=== PATIENT | female | born 1950 | race African-American/Black ===

== ENCOUNTER 2017-11-19 10:12 | Emergency (ER) | payer MEDICARE, MEDICAID ==
[~2017-11-19] VITALS: Ht 167.6 cm; Wt 86.2 kg
[~2017-11-19 10:12] MED LIST: EXELON4.6 MG/24 T; MIRTAZAPINE15 M2 PO; RISPERDAL CONST50 MG IM; VITAMIN D50000 I3 PO
[2017-11-19 10:40] LABS: BASO # 0.1 10*3/uL (0.0-0.1); BASO % 0.5 % (0.0-1.0); EOS # 0.1 10*3/uL (0.0-0.4); HEMATOCRIT 31.1 % (37.0-47.0); HEMOGLOBIN 9.5 g/dl (12.0-16.0); LYMPH # 3.2 10*3/uL (1.3-4.4); MEAN CELL VOLUME 82.5 fl (81.0-99.0); MEAN CORPUSCULAR HGB 25.2 pg (27.0-31.0); MEAN CORPUSCULAR HGB CONC 30.5 g/dl (33.0-37.0); MEAN PLATELET VOLUME 9.4 fl (9.6-12.3); MONO # 0.8 10*3/uL (0.1-1.0); MONO % 8.3 % (3.0-9.0); NEUT # 5.7 10*3/uL (2.3-7.9); NEUT % 57.6 % (47.0-73.0); PLATELET COUNT AUTOMATED 356 10*3/uL (130-400); RED BLOOD COUNT 3.77 10*6/uL (4.10-5.10); RED CELL DISTRI WIDTH 16.8 % (0-14.5); WHITE BLOOD COUNT 9.9 10*3/uL (4.8-10.8)
[2017-11-19 10:56] LABS: ACETAMINOPHEN (TYLENOL) < 2.0 ug/ml (10-30); ALKALINE PHOSPHATASE 126 U/L (45-117); BUN 26 mg/dl (7-24); CHLORIDE 103 mmol/L (98-107); CREATININE 1.44 mg/dL (0.55-1.02); ETHYL ALCOHOL < 3.0 mg/dl (<3); POTASSIUM 4.5 mmol/L (3.5-5.1); SGOT/AST 20 IU/L (3-35); SGPT/ALT 26 U/L (12-78); SODIUM 140 mmol/L (136-145); TOTAL PROTEIN 7.9 gm/dL (6.4-8.2)
[2017-11-19 14:18] LABS: BILIRUBIN NEGATIVE (NEGATIVE); BLOOD NEGATIVE (NEGATIVE); CLARITY CLEAR (CLEAR); COLOR YELLOW (YELLOW); GLUCOSE NEGATIVE (NEGATIVE); KETONE NEGATIVE (NEGATIVE); LEUKO ESTERASE TRACE (NEGATIVE); NITRITE POSITIVE (NEGATIVE); PH 5.5 (5.0-9.0); SPECIFIC GRAVITY 1.015 (1.005-1.030); UROBILINOGEN 0.2 E.U./dl (0.2-1.0)
[2017-11-19 14:27] LABS: URINE AMPHETAMINES < 1000 (1000ng/ml); URINE BARBITURATES < 200 (200ng/ml); URINE BENZODIAZEPINES < 200 (200ng/ml); URINE CANNABINOIDS (THC) < 50 (50ng/ml); URINE COCAINE < 300 (300ng/ml); URINE METHADONE < 300 (300ng/ml); URINE OPIATES < 300 (300ng/ml)
[2017-11-19 14:41] LABS: URINE PHENCYCLIDINE < 25 (25ng/ml)
[2017-11-19 14:44] LABS: BACTERIA 1+
[2017-11-19] MEDS ORDERED: LASIX40 MG PO (15:35)
[2017-11-19] MEDS ORDERED: K-TAB20 MEQ PO (15:37)
[2017-11-19] MEDS ORDERED: SEROQUEL25 MG PO (15:38)
[2017-11-19] MEDS ORDERED: RISPERDAL4 M1 PO (15:38)
[2017-11-19] MEDS ORDERED: BISACODYL10 MG R (15:40)
[2017-11-19] MEDS ORDERED: HALDOL5 MG/1 ML IJ (15:41)
[2017-11-19] MEDS ORDERED: BENADRYL ALLERG25 M5 PO (15:42)
== END 2017-11-19 16:05 | disposition home health service (06) ==
LOC: ED 10:12
PROVIDERS: Student in an Organized Health Care Education/Training Program
DX: F03.91 Unspecified dementia, unspecified severity, with behavioral disturbance (principal); F20.9 Schizophrenia, unspecified; Z79.899 Other long term (current) drug therapy

== ENCOUNTER 2017-11-19 12:35 | Inpatient (IN) | payer MEDICARE, MEDICAID ==
[~2017-11-19] VITALS: Ht 157.4 cm; Wt 70.3 kg
--- NOTE | ~2017-11-19 | PR ---
[place], [place] PROGRESS NOTE NAME: ALEXIA JOHNSON UNIT #: [id number] ROOM: 317 DOCTOR: MARIETTA MORSE DO BIRTHDATE: [birth year] DOS: 11/21/2017 CHIEF COMPLAINT: "I don't like these ." SUMMARY OF VISIT: The patient was interviewed in the dining liz. She was sitting in a chair and stated that she wanted the tray table removed. Stated that she did not want her sofía bears there. She the resident from [facility] in [place], [place]. States that she ate breakfast and continues to communicate but she is confused. MENTAL STATUS EXAMINATION: The patient is alert and oriented to self, not to time or place. Mood is somewhat labile with us and she did not respond to questions appropriately. She tended to jump from one topic or subject to another and she minimized her issues. There are no overt signs or symptoms of visual or auditory hallucinations. Her memory of the short term is very limited. PLAN: We will increase her Exelon patch to 9.5 mg daily and start Namenda 5 mg daily in order to maximize potential benefit. We will consult Dr. Elizondo to evaluate for competency. We will continue to engage her in individual and group activities with a plan to return her to the least restrictive environment, most likely to [facility] when she is psychiatrically stable. MARIETTA MORSE DO ALEXY VYAS MD CM:PNANJEL [phone] MARIETTA MORSE DO 11/21/17 1102 interface
--- NOTE | ~2017-11-19 | PR ---
[place], [place] PROGRESS NOTE NAME: ALEXIA JOHNSON UNIT #: [id number] ROOM: 317 DOCTOR: MARIETTA MORSE DO BIRTHDATE: [birth year] DOS: 11/23/2017 CHIEF COMPLAINT: "Sleeping was good." SUMMARY OF VISIT: The patient was interviewed in the dining room area. Stated that she was sleeping well on sleeping medication. Per staff, she has been taking her medication, but will take it in juice. MENTAL STATUS EXAMINATION: The patient is alert and oriented to self only, not to time or place. Mood is labile with us and she showed signs of aggression previously. PLAN: We will start trazodone 150 mg at night and increase the Namenda to 5 mg b.i.d. to maximize potential benefit. Continue to monitor the patient and engage her in group and individual activities. Her FDA and testing is pending. We will plan to return her to the least restrictive environment once psychiatrically stable. MARIETTA MORSE DO ALEXY VYAS MD CM:PNTRANS [id number] MARIETTA MORSE DO 11/24/17 1425 interface
--- NOTE | ~2017-11-19 | PR ---
[place], [place] PROGRESS NOTE NAME: ALEXIA JOHNSON UNIT #: [id number] ROOM: 317 DOCTOR: ALEXY VYAS MD BIRTHDATE: [birth year] DOS: 11/25/2017 CHIEF COMPLAINT: "Abdirashid, shelly come over here." SUMMARY OF THE VISIT: The patient was interviewed as she sat in the dining area in a Madelyn chair. She was partially engaging in activities, but also calling out to what appeared to be unforeseen others. The patient has been more compliant in the long run and has been less agitated and aggressive, although she still has periods with hands on care that she has been combative. She does seem to be tolerating the current medication regimen well without any sedation, somnolence, extrapyramidal symptoms or tardive dyskinesia. MENTAL STATUS: She is alert and oriented to person, possibly place, not time. Mood does seem to be starting to trend towards euthymia. Affect is more appropriate. There is no adina, hypomania or gross psychosis. Short term memory is poor. PLAN: I will maintain her current dose of Exelon patch at 13.3 and bring the Namenda to its ultimate therapeutic dose of 10 mg b.i.d. Maintain Risperdal. Continue to engage in individual and guerrero milieu activity, returning to the least restrictive environment when stable. ALEXY VYAS MD CM:PNTRANS 1107 1131 ALEXY VYAS MD 11/25/17 1130 interface
--- NOTE | ~2017-11-19 | PR ---
[place], [place] PROGRESS NOTE NAME: ALEXIA JOHNSON UNIT #: [id number] ROOM: 317 DOCTOR: ALEXY VYAS MD BIRTHDATE: [birth year] DOS: 11/26/2017 CHIEF COMPLAINT: "See my babies." SUMMARY OF THE VISIT: The patient was interviewed in the dining area where she sat in a Madelyn chair with a tray with babies on top of it that she was attending to. She engaged readily in superficial, confused conversation. She was not agitated, however. She was not physically or verbally combative in any way. She talked in short simple sentences, often times inappropriate. She is tolerating the current medication regimen well and I see no tardive dyskinesia, extrapyramidal symptoms, sedation or somnolence. MENTAL STATUS: She is alert and oriented with time gaps. Mood does seem to be trending towards euthymia. Affect is much more appropriate. There is no adina or hypomania. There are no overt auditory or visual hallucinations. She does remain delusional, but pleasantly so. Short term memory is exceedingly poor. PLAN: I will maintain her current psychotropic regimen, engage in individual and guerrero milieu activity, returning then to the least restrictive environment when stable. ALEXY VYAS MD CM:PNTRANS [phone] ALEXY VYAS MD 11/26/17 1041 interface
--- NOTE | ~2017-11-19 | PR ---
[place], [place] PROGRESS NOTE NAME: ALEXIA JOHNSON UNIT #: [id number] ROOM: 317 DOCTOR: MARIETTA MORSE DO BIRTHDATE: [birth year] DOS: 11/29/2017 CHIEF COMPLAINT: "I feel good." SUMMARY OF THE VISIT: The patient was interviewed in the dining room area. She is eating breakfast. She responded to questions, however, very slow. She was eating and per her baseline, she again continues to appear tearful in her right eye. MENTAL STATUS EXAMINATION: She is alert and oriented to self only, not to place or time. Mood seems to be trending towards euthymia with a more appropriate affect. There are no symptoms of adina, hypomania or psychosis. Short term memory exceedingly poor. PLAN: We will continue her current psychotropic regimen at this time. We will continue to monitor her for sedation and extrapyramidal side effects, tardive dyskinesia. Continue to engage her in group and individual activities with the plan to return her to the least restrictive environment when psychiatrically stable. MARIETTA MORSE DO ALEXY VYAS MD CM:PNTRANS [id number] MARIETTA MORSE DO 11/29/17 1114 interface
--- NOTE | ~2017-11-19 | PR ---
[place], [place] PROGRESS NOTE NAME: ALEXIA JOHNSON UNIT #: [id number] ROOM: 317 DOCTOR: ALEXY VYAS MD BIRTHDATE: [birth year] DOS: 11/27/2017 CHIEF COMPLAINT: "I am okay." SUMMARY OF THE VISIT: The patient was interviewed as she was sitting in a Madelyn chair, having completed her breakfast and she was interacting with her baby dolls. She was sleeping at first. I did approach her and she woke up quickly and grabbed a hold of her dolls and stroked them. Her responses still tend to be short and simple. She was pleasant with me; however, grossly confused nonetheless. MENTAL STATUS: She is alert and oriented to self. It is unclear place, certainly not time. Mood does seem to be trending towards euthymia. Affect is more appropriate. There is no adina, hypomania or psychosis. Short term memory is exceedingly poor and she processes slowly. PLAN: I will maintain her current psychotropic regimen, continue to monitor for sedation and somnolence as well as extrapyramidal symptoms and tardive dyskinesia, continue to engage in individual and guerrero milieu activity, returning to the least restrictive environment when psychiatrically stable. ALEXY VYAS MD CM:PNTRANS 0924 1007 ALEXY VYAS MD 11/27/17 1007 interface
--- NOTE | ~2017-11-19 | PR ---
[place], [place] PROGRESS NOTE NAME: ALEXIA JOHNSON UNIT #: [id number] ROOM: 317 DOCTOR: MARIETTA MORSE DO BIRTHDATE: [birth year] DOS: 11/24/2017 CHIEF COMPLAINT: "Feel fine." SUMMARY OF VISIT: The patient was interviewed in the therapy room with the machine dyer present. The patient reports that she slept. She was calling people or lady yesterday. The patient denied any pain or trouble sleeping. MENTAL STATUS EXAMINATION: The patient is alert and oriented to self only, not to time or place. and she does not typically respond to questions appropriately. Her behavior at times has been somewhat aggressive. There are no signs or symptoms of visual or auditory hallucinations. Short term memory is limited. PLAN: We will increase her Namenda dose to 10 mg in the morning and 5 mg at night to maximize potential benefit. Her FTA antibody level was positive. We will discuss with the medical team. We will continue to engage her in group and individual activities with the plan to return her to the least restrictive environment when psychiatrically stable. MARIETTA MORSE DO ALEXY VYAS MD CM:PNTRANS [phone] MARIETTA MORSE DO 11/24/17 1430 interface
--- NOTE | ~2017-11-19 | CON ---
[place], [place] REPORT OF CONSULTATION NAME: ALEXIA JOHNSON UNIT #: [id number] ROOM: 317 DOCTOR: JEFF DAVIDSON ED.D (FELICITAS) BIRTHDATE: [birth year] DOS: 11/21/2017 HISTORY OF PRESENT ILLNESS: The patient is a 67-year-old female referred by Dr. Alex for competency evaluation. The patient was not able to answer very simple questions, although she did state she had several children, but does not know their names or where they live or how old they were. She is presently a resident at [facility] in [place], [place]. Her medical history is pertinent for diabetes mellitus, schizophrenia and Alzheimer dementia. I do not know her substance abuse history. She was awake, alert and oriented to person only. She had no idea where and she was and she has no idea of the date or the year. She cannot hold normal simple conversations. She is obviously quite confused. Her short and long-term memory are both markedly impaired and it is clear she is not competent to make informed healthcare decisions. [facility] and I do believe she is not capable of making decisions and a guardian should be established if there are no family members who are her healthcare power of state's attorney. DIAGNOSES: 1. Schizophrenia. 2. Major neurocognitive disorder--Alzheimer disease. RECOMMENDATIONS: In my opinion, this patient needs a guardian. Thank you very much very much for this consult. JEFF DAVIDSON ED.D CM:CONSTR:REPORT OF CONSULTATION 1516 11/21/17 2217 interface ALEXY ALEX MD
--- NOTE | ~2017-11-19 | PR ---
[place], [place] PROGRESS NOTE NAME: ALEXIA JOHNSON UNIT #: [id number] ROOM: 317 DOCTOR: MARIETTA MORSE DO BIRTHDATE: [birth year] DOS: 11/28/2017 CHIEF COMPLAINT: The patient ____. SUMMARY OF VISIT: The patient was interviewed in the dining room while she was eating breakfast. She appeared to respond with her eyes, but continued to eat and did not respond appropriately to questions. Per report and staff, the patient slept. She did appear tearful in her right eye as we were speaking. MENTAL STATUS: She is alert and oriented to self only. Mood does seem to be trending towards euthymia with more appropriate affect. There are no symptoms of adina, hypomania, psychosis. Short term memory is exceedingly poor and she continues to process thoughts very slowly. PLAN: We will continue with current psychotropic regimen at this time. Continue to monitor for sedation in ____ months as well as any extrapyramidal symptoms and tardive dyskinesia. We will continue to engage her in individual and group activities with the plan to return her to the least restrictive environment when psychiatrically stable. MARIETTA MORSE DO ALEXY VYAS MD CM:PNANJEL [id number] MARIETTA MORSE DO 11/29/17 0451 interface
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
[2017-11-19] MEDS ORDERED: LASIX40 MG PO (15:35)
[2017-11-19] MEDS ORDERED: K-TAB20 MEQ PO (15:37)
[2017-11-19] MEDS ORDERED: SEROQUEL25 MG PO (15:38)
[2017-11-19] MEDS ORDERED: RISPERDAL4 M1 PO (15:38)
[2017-11-19] MEDS ORDERED: BISACODYL10 MG R (15:40)
[2017-11-19] MEDS ORDERED: HALDOL5 MG/1 ML IJ (15:41)
[2017-11-19] MEDS ORDERED: BENADRYL ALLERG25 M5 PO (15:42)
[2017-11-19 16:41] VITALS: BP 141/54
[2017-11-19 16:42] VITALS: BP 141/54
[2017-11-19 20:47] VITALS: BP 165/63
[2017-11-20 05:51] LABS: ALBUMIN 2.8 gm/dl (3.1-4.5); CREATININE 1.19 mg/dL (0.55-1.02); POTASSIUM 4.5 mmol/L (3.5-5.1)
[2017-11-20 05:58] LABS: THYROID STIM HORMONE (HS) 3.35 uIU/ml (0.358-4.75)
[2017-11-20 06:30] LABS: BASO % 0.6 % (0.0-1.0); EOS # 0.1 10*3/uL (0.0-0.4); HEMATOCRIT 30.6 % (37.0-47.0); HEMOGLOBIN 9.4 g/dl (12.0-16.0); LYMPH # 1.4 10*3/uL (1.3-4.4); LYMPH % 21.2 % (27.0-41.0); MEAN CELL VOLUME 82.9 fl (81.0-99.0); MEAN CORPUSCULAR HGB 25.5 pg (27.0-31.0); MEAN CORPUSCULAR HGB CONC 30.7 g/dl (33.0-37.0); MEAN PLATELET VOLUME 9.8 fl (9.6-12.3); MONO # 0.5 10*3/uL (0.1-1.0); MONO % 7.8 % (3.0-9.0); NEUT # 4.6 10*3/uL (2.3-7.9); NEUT % 69.1 % (47.0-73.0); PLATELET COUNT AUTOMATED 320 10*3/uL (130-400); RED BLOOD COUNT 3.69 10*6/uL (4.10-5.10); RED CELL DISTRI WIDTH 16.7 % (0-14.5); WHITE BLOOD COUNT 6.7 10*3/uL (4.8-10.8)
[2017-11-20 07:21] LABS: VITAMIN D, 25-HYDROXY 38.9 ng/mL (30-100)
[2017-11-20 07:53] VITALS: BP 154/78
[2017-11-21 08:12] VITALS: BP 129/56
[2017-11-21 20:52] VITALS: BP 132/76
[2017-11-22 08:00] VITALS: BP 139/66
[2017-11-22 20:00] VITALS: BP 136/70
[2017-11-23 09:04] VITALS: BP 119/52
[2017-11-23 20:20] VITALS: BP 156/64
[2017-11-24 08:11] VITALS: BP 142/70
[2017-11-24 08:12] VITALS: BP 142/70
[2017-11-24 20:17] VITALS: BP 134/62
[2017-11-25 08:10] VITALS: BP 132/84
[2017-11-25 20:00] VITALS: BP 143/88
[2017-11-26 07:31] VITALS: BP 136/80
[2017-11-26 19:51] VITALS: BP 135/64
[2017-11-27 07:51] VITALS: BP 132/76
[2017-11-27 20:16] VITALS: BP 140/64
[2017-11-28 07:59] VITALS: BP 134/69
[2017-11-28 20:00] VITALS: BP 148/62
[2017-11-29 07:57] VITALS: BP 136/72
[2017-11-29] MEDS ORDERED: TRAZODONE150 MG PO (12:14)
[2017-11-29] MEDS ORDERED: MEMANTINE HCL10 MG PO (12:14)
[2017-11-29] MEDS ORDERED: EXELON13.3 MG/21 T (12:14)
[2017-11-29] MEDS ORDERED: RISPERIDONE M-TA1 MG BC ×2 (12:14)
[2017-11-29] MEDS ORDERED: LISINOPRIL2.5 MG PO (14:59)
[2017-11-29] MEDS ORDERED: [UNRECOGNIZED DRUG - CODE] IM (15:04)
== END 2017-11-29 15:35 | disposition other institution (70) | DRG 56 ==
LOC: 3N 12:35
PROVIDERS: Psychiatry & Neurology Psychiatry
DX: G30.9 Alzheimer's disease, unspecified (principal); E43 Unspecified severe protein-calorie malnutrition; F02.81 Dementia in other diseases classified elsewhere, unspecified severity, with behavioral disturbance; N39.0 Urinary tract infection, site not specified; F20.9 Schizophrenia, unspecified; E11.65 Type 2 diabetes mellitus with hyperglycemia; D64.9 Anemia, unspecified; I87.2 Venous insufficiency (chronic) (peripheral); Z83.3 Family history of diabetes mellitus; Z82.49 Family history of ischemic heart disease and other diseases of the circulatory system; Z79.899 Other long term (current) drug therapy; Z68.28 Body mass index [BMI] 28.0-28.9, adult

== ENCOUNTER 2018-02-18 20:43 | Inpatient (IN) | payer MEDICARE, MEDICAID ==
[~2018-02-18] VITALS: Ht 144.7 cm; Wt 79.0 kg
--- NOTE | ~2018-02-18 | PR ---
[place], [place] PROGRESS NOTE NAME: ALEXIA JOHNSON UNIT #: [id number] ROOM: 312 DOCTOR: ALEXY VYAS MD BIRTHDATE: [birth year] DOS: 02/23/2018 CHIEF COMPLAINT: "Oh, hi there." SUMMARY OF THE VISIT: The patient was interviewed in the dining area where she was engaging in group activity. She stopped and engaged in brief superficial conversation, smiling at me as I approached. She voiced no complaints, stating that she is sleeping well, eating well and feels much better since she has been here. She is anxious to leave and be able to go back home. She was not able to actually tell me where home was. MENTAL STATUS: She is alert and oriented to self, place, perhaps not time. Mood does seem to be trending towards euthymia. Affect is much more appropriate. There is no adina or hypomania. There are no gross psychotic symptoms. Short term memory continues to be problematic, intermediate, and long-term memory are intact. PLAN: Maintain the current psychotropic regimen, engage in individual and guerrero milieu activities, returning then to [facility] when stable. ALEXY VYAS MD CM:PNTRANS [phone] [id number] ALEXY VYAS MD 02/23/182036 interface
--- NOTE | ~2018-02-18 | PR ---
[place], [place] PROGRESS NOTE NAME: ALEXIA JOHNSON UNIT #: [id number] ROOM: 312 DOCTOR: ALEXY VYAS MD BIRTHDATE: [birth year] DOS: 02/24/2018 INTERVAL NOTE CHIEF COMPLAINT: "Oh, hi doctor, how are you?" SUMMARY OF THE VISIT: The patient was interviewed as she was resting quietly in bed. She engaged readily in conversation albeit superficial. She denied any problems, stating that she is sleeping well, eating well and is anxious to leave the hospital. Nurses do report; however, they are not finding her Exelon patches on her when they go to replace it. So at some point in time, she is picking off the patch and throwing them away. MENTAL STATUS: She is alert and oriented to person, place, but not time. Mood does seem to be more euthymic. Affect is more appropriate. There is no adina or hypomania. There is no voiced psychotic symptoms. Short term memory continues to be poor. PLAN: I will discontinue Exelon patch in lieu of Exelon capsules 6 mg. ALEXY VYAS MD CM:PNTRANS 1141 1 ALEXY VYAS MD 02/25/180 interface
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
--- NOTE | ~2018-02-18 | PR ---
[place], [place] PROGRESS NOTE NAME: ALEXIA JOHNSON UNIT #: [id number] ROOM: 312 DOCTOR: ALEXY VYAS MD BIRTHDATE: [birth year] DOS: 02/25/2018 INTERVAL NOTE CHIEF COMPLAINT: "Oh good morning doctor." SUMMARY OF THE VISIT: The patient was interviewed as she was sitting in the dining area, watching television, working on a coloring page and talking to a female staff member. As I approached, she smiled readily and greeted me. She reports that she is feeling well, sleeping well, eating well and noting no issues whatsoever. Behaviorally, she has been perfect and has not exhibited any agitation or aggression and she likewise has been tolerating her current medication regimen well. MENTAL STATUS: She is alert and oriented to person, place, but not time. Mood does seem to be strongly trending towards euthymia. Affect is much more appropriate. There is no adina, hypomania or psychosis. Short term memory continues to be problematic, but otherwise she is intact. PLAN: I will renew her p.r.n. Ativan in case she requires intervention. Continue to engage in individual and guerrero milieu activity, returning then to the least restrictive environment when psychiatrically stable. ALEXY VYAS MD CM:PNTRANS [phone] ALEXY VYAS MD 02/26/18 0140 interface
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
[~2018-02-18 20:43] MED LIST changes: +BENADRYL ALLERG25 M5 PO; +BISACODYL10 MG R; +EXELON13.3 MG/21 T; +HALDOL5 MG/1 ML IJ; +K-TAB20 MEQ PO; +LASIX40 MG PO; +LISINOPRIL2.5 MG PO; +MEMANTINE HCL10 MG PO; +RISPERDAL4 M1 PO; +RISPERIDONE M-TA1 MG BC; +SEROQUEL25 MG PO; +TRAZODONE150 MG PO; +[UNRECOGNIZED DRUG - CODE] IM
[2018-02-18] MEDS ORDERED: HALOPERIDOL2 M1 PO (21:39)
[2018-02-18] MEDS ORDERED: LASIX20 MG PO (21:40)
[2018-02-18 23:33] VITALS: BP 152/60
[2018-02-18 23:45] VITALS: BP 152/60
[2018-02-19 07:52] VITALS: BP 147/64
[2018-02-19 20:13] VITALS: BP 155/80
[2018-02-20 07:54] VITALS: BP 143/72
[2018-02-20 20:06] VITALS: BP 135/58
[2018-02-21 08:13] VITALS: BP 114/64
[2018-02-21 20:00] VITALS: BP 142/56
[2018-02-22 07:46] VITALS: BP 132/70
[2018-02-22 07:47] VITALS: BP 132/70
[2018-02-22 20:00] VITALS: BP 146/68
[2018-02-23 07:50] VITALS: BP 141/70
[2018-02-23 20:01] VITALS: BP 145/66
[2018-02-24 07:46] VITALS: BP 123/65
[2018-02-24 20:05] VITALS: BP 120/78
[2018-02-25 08:31] VITALS: BP 142/66
[2018-02-25 19:54] VITALS: BP 135/52
[2018-02-26 08:03] VITALS: BP 100/55
[2018-02-26] MEDS ORDERED: MEMANTINE HCL10 MG PO (11:15)
[2018-02-26] MEDS ORDERED: TRAZODONE100 MG PO (11:15)
[2018-02-26] MEDS ORDERED: RISPERDAL M BC ×2 (11:15)
[2018-02-26] MEDS ORDERED: Vitamin D PO (11:15)
[2018-02-26] MEDS ORDERED: RIVASTIGMINE TAR3 M1 PO (11:15)
== END 2018-02-26 13:15 | disposition other institution (70) | DRG 885 ==
LOC: 3N 20:43
DX: F25.9 Schizoaffective disorder, unspecified (principal); G30.9 Alzheimer's disease, unspecified; F02.80 Dementia in other diseases classified elsewhere, unspecified severity, without behavioral disturbance, psychotic disturbance, mood disturbance, and anxiety; E11.65 Type 2 diabetes mellitus with hyperglycemia; I87.2 Venous insufficiency (chronic) (peripheral); R45.1 Restlessness and agitation; F09 Unspecified mental disorder due to known physiological condition; S91.109A Unspecified open wound of unspecified toe(s) without damage to nail, initial encounter; F32.9 Major depressive disorder, single episode, unspecified; Z83.3 Family history of diabetes mellitus; Z82.49 Family history of ischemic heart disease and other diseases of the circulatory system; X58.XXXA Exposure to other specified factors, initial encounter; Y93.89 Activity, other specified; Y92.89 Other specified places as the place of occurrence of the external cause; Y99.8 Other external cause status

== ENCOUNTER 2018-06-23 23:09 | Inpatient (IN) | payer MEDICARE, MEDICAID ==
[~2018-06-23] VITALS: Ht 154.9 cm; Wt 81.6 kg
--- NOTE | ~2018-06-23 | PR ---
[place], [place] PROGRESS NOTE NAME: ALEXIA JOHNSON UNIT #: [id number] ROOM: 312 DOCTOR: ALEXY VYAS MD BIRTHDATE: [birth year] DOS: 06/28/2018 CHIEF COMPLAINT: "Oh, I have been waiting for you honey." SUMMARY OF THE VISIT: The patient was interviewed as she was sitting eating her breakfast. As I approached, she smiled readily. She engaged in brief superficial conversation with me stating that she has been waiting to see me and continued to be somewhat flirtatious. She was pleasant with me and voiced no other complaints. There was no sedation or somnolence, no extrapyramidal symptoms. MENTAL STATUS: She is alert and oriented to person, place, not necessarily time. Mood does seem to be trending towards euthymia. Affect is more appropriate. There is no adina, hypomania or psychosis. Short term memory is very problematic. PLAN: I will increase her Fanapt from 2 mg twice a day to 4 mg twice a day as I am attempting to control some of the mood lability and PTSD type symptoms. Her RPR did come back positive as did her FTA antibody and I will defer to the hospitalist for any further treatment. ALEXY VYAS MD CM:PNTRANS 8 5 ALEXY VYAS MD 06/28/18825 interface
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
--- NOTE | ~2018-06-23 | EKG ---
[place], [place] ELECTROCARDIOGRAM REPORT NAME: ALEXIA JOHNSON UNIT #: [id number] ROOM: 312 DOCTOR: TIFFANIE DRAFT REPORT BIRTHDATE: [birth year] [facility] Test Date: 2018-07-03 Test Time: 03:54:21 Pat Name: ALEXIA JOHNSON Department: Room: [facility] 2 Gender: F Mechanical Design Technician: : 1950 Requested By: NEEMA DUARTE Order Number: [id number] Reading MD: Measurements Intervals [place] Rate: 67 P: 91 AR: 184 QRS: 32 QRSD: 99 T: -3 QT: 441 QTc: 466 Interpretive Statements Sinus rhythm Consider right atrial enlargement Borderline T abnormalities, inferior leads No previous ECG available for comparison CM:EKGRPT:ELECTROCARDIOGRAM REPORT [id number] NEEMA JERONIMO DRAFT REPORT NEEMA DUARTE DO
--- NOTE | ~2018-06-23 | PR ---
[place], [place] PROGRESS NOTE NAME: ALEXIA JOHNSON UNIT #: [id number] ROOM: 312 DOCTOR: ALEXY VYAS MD BIRTHDATE: [birth year] DOS: 07/10/2018 CHIEF COMPLAINT: "Oh, hi there honey, how are you?" SUMMARY OF THE VISIT: The patient was interviewed in the dining area where she was completing her breakfast once again. She reported that she slept well. She feels warm and happy and denied any other issues. There was no agitation or aggression, no mood lability. Likewise, there was no tardive dyskinesia, extrapyramidal symptoms, sedation or somnolence. MENTAL STATUS: She remains alert and oriented to self only. She is pleasantly confused with no agitation, no hypomania or adina. No gross psychosis. Memory remains poor and she processes slowly. PLAN: I will maintain her current psychotropic regimen and engage in individual and guerrero milieu activity, returning to the least restrictive environment when psychiatrically stable. ALEXY VYAS MD CM:PNTRANS 0922 [id number] ALEXY VYAS MD 07/10/18 1419 interface
--- NOTE | ~2018-06-23 | PR ---
[place], [place] PROGRESS NOTE NAME: ALEXIA JOHNSON UNIT #: [id number] ROOM: 312 DOCTOR: ALEXY VYAS MD BIRTHDATE: [birth year] DOS: 07/03/2018 INTERVAL NOTE CHIEF COMPLAINT: "The patient was sleeping in her bed and did not awake." SUMMARY OF THE VISIT: Nurses report that she was very somnolent upon awakening this morning and was hard to arouse and did not eat much. Her blood pressure was also low. This corresponds with me increasing the nighttime dose of the Fanapt and is most likely in response to that increase. I was not able to arouse her much. She did open her eyes and mouth the word morning and then went back to sleep. MENTAL STATUS: Limited due to her overall level of somnolence. PLAN: I will lower the dose of Fanapt back to 6 mg twice daily. This in conjunction with the Ativan does seem to be decreasing her resistance to care and to posttraumatic stress disorder symptoms. I will continue to engage in individual and guerrero milieu activity, returning to the least restrictive environment when psychiatrically stable. ALEXY VYAS MD CM:PNTRANS [phone] ALEXY VYAS MD 07/03/18 1255 interface
--- NOTE | ~2018-06-23 | PR ---
[place], [place] PROGRESS NOTE NAME: CARISSA JOHNSON UNIT #: [id number] ROOM: 312 DOCTOR: ALEXY VYAS MD BIRTHDATE: [birth year] DOS: 07/09/2018 INTERVAL NOTE CHIEF COMPLAINT: "Oh I'll have some more pancakes please." SUMMARY OF THE VISIT: The patient was interviewed as she was sitting in the dining area. She had her entire plate of food just about eaten and requested some more pancakes. She was bright and pleasant, relatively conversant for Carissa. There were no attempts to be agitated or aggressive. There was no impulsive behavior. She responded to questions briefly, but pleasantly. I did not see the presence of any sedation, somnolence, extrapyramidal symptoms or tardive dyskinesia. MENTAL STATUS: She is alert and oriented to self, unclear place, certainly not time. Mood does seem to be fairly euthymic. Affect is more appropriate. There is no adina or hypomania noted. There are no gross psychotic symptoms. Short term memory continues to be problematic. Otherwise, she is intact. PLAN: I will maintain her current psychotropics. I have discussed the case with social organization professor regarding alternative placement options and they will reach out to some of the long-term care facilities in the [place], [place] area to see if there is any bed availability. I will continue to engage her in individual and guerrero milieu activity, returning then to the least restrictive environment when psychiatrically stable. ALXEY VYAS MD CM:PNTRANS 0837 [id number] ALEXY VYAS MD 07/10/18 0331 interface
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
--- NOTE | ~2018-06-23 | PR ---
[place], [place] PROGRESS NOTE NAME: ALEXIA JOHNSON UNIT #: [id number] ROOM: 312 DOCTOR: ALEXY VYAS MD BIRTHDATE: [birth year] DOS: 07/01/2018 CHIEF COMPLAINT: "Morning honey." SUMMARY OF THE VISIT: The patient was sitting in the quiet room. She engaged in brief superficial conversation, smiling as I approached. There was no agitation or aggression, no mood lability. Nurses do report, however, she continues to be somewhat resistive to care and at those times when she becomes verbally and physically combative. She does seem to be tolerating the Fanapt well. There is only some mild somnolence noted, but she was awake as I mentioned earlier as I approached. MENTAL STATUS: She is alert and oriented to person, place, not to time. Mood does seem to be trending gradually towards euthymia. Affect is more appropriate. There is no adina, hypomania or gross psychosis. Short term memory continues to be problematic. PLAN: I will maintain her current psychotropic regimen consider increasing the Fanapt later. At this point, I would like her to adjust to it further before making any further adjustments in the dosing schedule. ALEXY VYAS MD CM:PNTRANS 1015 1055 ALEXY VYAS MD 07/01/18 1055 interface
--- NOTE | ~2018-06-23 | PR ---
[place], [place] PROGRESS NOTE NAME: ALEXIA JOHNSON UNIT #: [id number] ROOM: 312 DOCTOR: ALEXY VYAS MD BIRTHDATE: [birth year] DOS: 06/26/2018 CHIEF COMPLAINT: "Oh good morning sweetie I love you." SUMMARY OF THE VISIT: The patient was interviewed as she was walking up and down the hallway. She was able to engage in conversation with me. She smiled readily and voiced no other complaints. Nurses report that overall her behavior is trending toward improvement, but she still has these periods of unprovoked agitation. She is tolerating the Fanapt well and I noticed no sedation, somnolence, extrapyramidal symptoms, or tardive dyskinesia. MENTAL STATUS: She is alert and oriented to person, place, not necessarily time. Mood does seem to be more euthymic. Affect more appropriate. There is no adina or hypomania. There are no gross psychotic symptoms. Short term memory continues to be problematic. PLAN: I will continue my titration of the Fanapt bringing it from 1 mg b.i.d. to 2 mg b.i.d. Monitor and support, engage in individual and guerrero milieu activity, returning then to the least restrictive environment when psychiatrically stable. ALEXY VYAS MD CM:PNTRANS [id number] ALEXY VYAS MD 06/26/18 1140 interface
--- NOTE | ~2018-06-23 | PR ---
[place], [place] PROGRESS NOTE NAME: ALEXIA JOHNSON UNIT #: [id number] ROOM: 312 DOCTOR: ALEXY VYAS MD BIRTHDATE: [birth year] DOS: 06/29/2018 CHIEF COMPLAINT: "Oh, good morning honey, do you want some coffee or juice?" SUMMARY OF THE VISIT: The patient was interviewed as she was sitting eating her breakfast in the dining area. Once again as I approached, she smiled readily and greeted me with offering me either her coffee or her milk or her juice. She smiled and voiced no other complaints. She reports that she slept well and nurses confirmed that she slept very well last evening. MENTAL STATUS: She is alert and oriented to self, possibly place, not to time. Mood seems trending towards euthymia. Affect is more appropriate. There is no adina or hypomania. There is no gross psychosis noted. No auditory or visual hallucinations are present and there is no paranoia. Short term memory continues to be problematic. PLAN: I will go ahead and simplify her regimen, continuing to increase the Fanapt now from 4 mg b.i.d. to 6 mg b.i.d. I will discontinue her afternoon, evening, Atarax because I think the Fanapt will cover her and help prevent behaviors. We will monitor and support. ALEXY VYAS MD CM:PNTRANS [phone] ALEXY VYAS MD 06/29/18 1443 interface
--- NOTE | ~2018-06-23 | PR ---
[place], [place] PROGRESS NOTE [id number] UNIT #: [id number] ROOM: 312 DOCTOR: ALEXY VYAS MD BIRTHDATE: [birth year] DOS: 07/04/2018 CHIEF COMPLAINT: "Oh good morning honey." SUMMARY OF THE VISIT: The patient was interviewed as she was sitting in a Madelyn chair, watching television in the dining area. She was much more awake and interactive today than she was yesterday. She was able to converse with me readily. There was no agitation or aggression. There was no mood lability. MENTAL STATUS: She is alert and oriented to self, unclear place, certainly not time. Mood does seem to be more stable. There is less mood lability noted. There was no adina, hypomania or psychosis. Short term memory continues to be problematic. Otherwise, she is intact. PLAN: I will maintain her current psychotropics, monitor and support, engage in individual and guerrero milieu activity, returning to the least restrictive environment when psychiatrically stable. ALEXY VYAS MD CM:PNTRANS 0954 1043 ALEXY VYAS MD 07/04/18 1043 interface
[~2018-06-23 23:09] MED LIST changes: +AMBIEN5 MG PO; +ARICEPT10 M1 PO; +HALOPERIDOL2 M1 PO; +IRON325 M3 PO; +LASIX20 MG PO; +NORVASC10 MG PO; +RISPERDAL M BC; +RIVASTIGMINE TAR3 M1 PO; +TRAZODONE100 MG PO; +Vitamin D PO
[2018-06-23] MEDS ORDERED: ZYPREXA ZYDIS10 MG PO (23:10)
[2018-06-23 23:55] VITALS: BP 156/66
[2018-06-24 07:34] VITALS: BP 128/72
[2018-06-24 08:01] LABS: VITAMIN D, 25-HYDROXY 29.1 ng/mL (30-100)
[2018-06-24 19:16] VITALS: BP 130/69
[2018-06-25 08:00] VITALS: BP 143/55
[2018-06-25 20:02] VITALS: BP 143/60
[2018-06-26 07:41] VITALS: BP 143/65
[2018-06-26 20:10] VITALS: BP 150/68
[2018-06-26 20:24] VITALS: BP 143/65
[2018-06-27 07:33] VITALS: BP 120/64
[2018-06-27 19:20] VITALS: BP 124/67
[2018-06-28 07:24] VITALS: BP 138/70
[2018-06-28 19:13] VITALS: BP 132/72
[2018-06-29 07:22] VITALS: BP 132/66
[2018-06-29 20:15] VITALS: BP 155/57
[2018-06-30 08:23] VITALS: BP 120/62
[2018-06-30 19:31] VITALS: BP 138/68
[2018-07-01 07:25] VITALS: BP 156/50
[2018-07-01 19:50] VITALS: BP 142/58
[2018-07-02 07:25] VITALS: BP 136/69
[2018-07-02 19:49] VITALS: BP 135/59
[2018-07-03 01:19] VITALS: BP 154/69
[2018-07-03 03:01] VITALS: BP 97/52
[2018-07-03 03:45] LABS: BASO % 0.4 % (0.0-1.0); EOS # 0.1 10*3/uL (0.0-0.4); HEMATOCRIT 31.5 % (37.0-47.0); HEMOGLOBIN 9.7 g/dl (12.0-16.0); LYMPH # 2.6 10*3/uL (1.3-4.4); LYMPH % 36.5 % (27.0-41.0); MEAN CELL VOLUME 84.9 fl (81.0-99.0); MEAN CORPUSCULAR HGB 26.1 pg (27.0-31.0); MEAN CORPUSCULAR HGB CONC 30.8 g/dl (33.0-37.0); MEAN PLATELET VOLUME 9.9 fl (9.6-12.3); MONO # 0.7 10*3/uL (0.1-1.0); MONO % 9.1 % (3.0-9.0); NEUT # 3.7 10*3/uL (2.3-7.9); NEUT % 51.7 % (47.0-73.0); PLATELET COUNT AUTOMATED 213 10*3/uL (130-400); RED BLOOD COUNT 3.71 10*6/uL (4.10-5.10); RED CELL DISTRI WIDTH 17.5 % (0-14.5); WHITE BLOOD COUNT 7.2 10*3/uL (4.8-10.8)
[2018-07-03 04:04] LABS: CREATININE 1.15 mg/dL (0.55-1.02); POTASSIUM 4.7 mmol/L (3.5-5.1); TOTAL PROTEIN 7.1 gm/dL (6.4-8.2)
[2018-07-03 05:14] VITALS: BP 105/55
[2018-07-03 05:56] VITALS: BP 133/51
[2018-07-03 07:51] VITALS: BP 130/68
[2018-07-03 19:05] VITALS: BP 136/72
[2018-07-04 07:56] VITALS: BP 148/67
[2018-07-04 19:44] VITALS: BP 150/84
[2018-07-05 08:00] VITALS: BP 131/64
[2018-07-05 19:43] VITALS: BP 149/54
[2018-07-06 07:11] VITALS: BP 142/76
[2018-07-06 20:30] VITALS: BP 135/78
[2018-07-07 08:51] LABS: BASO % 0.6 % (0.0-1.0); EOS # 0.1 10*3/uL (0.0-0.4); EOS % 1.8 % (1.0-4.0); HEMATOCRIT 30.6 % (37.0-47.0); HEMOGLOBIN 9.4 g/dl (12.0-16.0); LYMPH # 1.9 10*3/uL (1.3-4.4); LYMPH % 38.5 % (27.0-41.0); MEAN CELL VOLUME 85.2 fl (81.0-99.0); MEAN CORPUSCULAR HGB 26.2 pg (27.0-31.0); MEAN CORPUSCULAR HGB CONC 30.7 g/dl (33.0-37.0); MEAN PLATELET VOLUME 10.4 fl (9.6-12.3); MONO # 0.5 10*3/uL (0.1-1.0); MONO % 9.3 % (3.0-9.0); NEUT # 2.5 10*3/uL (2.3-7.9); NEUT % 49.4 % (47.0-73.0); PLATELET COUNT AUTOMATED 200 10*3/uL (130-400); RED BLOOD COUNT 3.59 10*6/uL (4.10-5.10); RED CELL DISTRI WIDTH 17.4 % (0-14.5)
[2018-07-07 09:08] LABS: BUN 23 mg/dl (7-24); CHLORIDE 109 mmol/L (98-107); CREATININE 1.05 mg/dL (0.55-1.02); POTASSIUM 4.2 mmol/L (3.5-5.1); SODIUM 145 mmol/L (136-145)
[2018-07-07 10:21] VITALS: BP 127/65
[2018-07-07 19:13] VITALS: BP 124/67
[2018-07-08 07:17] VITALS: BP 140/80
[2018-07-08 19:51] VITALS: BP 141/76
[2018-07-09 07:30] VITALS: BP 138/74
[2018-07-09 19:49] VITALS: BP 138/76
[2018-07-10 08:13] VITALS: BP 132/63
[2018-07-10 18:39] VITALS: BP 107/65
[2018-07-11 07:42] VITALS: BP 146/55
[2018-07-11] MEDS ORDERED: MEMANTINE HCL10 MG PO (08:54)
[2018-07-11] MEDS ORDERED: FANAPT12 MG PO (08:54)
[2018-07-11] MEDS ORDERED: MIRTAZAPINE15 M2 PO (08:54)
[2018-07-11] MEDS ORDERED: EXELON13.3 MG/21 T (08:54)
[2018-07-11] MEDS ORDERED: DIVALPROEX SOD125 M1 PO ×2 (08:54)
[2018-07-11] MEDS ORDERED: ATIVAN0.5 MG PO (10:19)
== END 2018-07-11 15:09 | DRG 883 ==
LOC: 3N 23:09
PROVIDERS: Internal Medicine; Psychiatry & Neurology Psychiatry
DX: F63.81 Intermittent explosive disorder (principal); E43 Unspecified severe protein-calorie malnutrition; F02.81 Dementia in other diseases classified elsewhere, unspecified severity, with behavioral disturbance; F33.2 Major depressive disorder, recurrent severe without psychotic features; F43.10 Post-traumatic stress disorder, unspecified; F20.9 Schizophrenia, unspecified; E55.9 Vitamin D deficiency, unspecified; D64.9 Anemia, unspecified; E11.65 Type 2 diabetes mellitus with hyperglycemia; G30.9 Alzheimer's disease, unspecified; I87.2 Venous insufficiency (chronic) (peripheral); S91.109D Unspecified open wound of unspecified toe(s) without damage to nail, subsequent encounter; Z83.3 Family history of diabetes mellitus; Z82.49 Family history of ischemic heart disease and other diseases of the circulatory system; Z79.899 Other long term (current) drug therapy; Z87.440 Personal history of urinary (tract) infections; Z68.34 Body mass index [BMI] 34.0-34.9, adult